=== PATIENT | female | born 1940 | race Caucasian/White ===

== ENCOUNTER 2024-11-13 11:28 | Observation (INO) ==
--- NOTE | 2024-11-13 11:48 | Emergency Department Note ---
Impression & Plan Chest pain, Elevated troponin, Hypertensive urgency ED Provider Note Name: CASSANDRA FORDE Age: 84 Sex: Female Arrives Via: Walk-In Informant: Patient ED Provider: Maurice Hutton MD Chief Complaint: Chest pain Impression: As per impressions above Medical Decision Makin-year-old female with a history of significant hypertension arrives for evaluation of 2 episodes of substernal chest pain prior to arrival. Pain had radiated down both elbows. On arrival feeling much better though she is significantly hypertensive. She was given IV hydralazine with improvement in blood pressure. EKG is reassuring. Initial laboratory workup does reveal mildly elevated troponin. She had another episode of brief chest pain which resolved. An EKG at that time was unremarkable. She was given aspirin 324 mg p.o. She was admitted to the hospital service for further workup and evaluation. I do not feel symptoms are consistent with a PE and angiography is not indicated at this time. Triage/Nursing Notes reviewed by Me Differential:Cardiac ischemia, aortic dissection, pulmonary embolism, pneumothorax, pneumonia, pericarditis, myocarditis, esophageal rupture, GERD, cholecystitis, pancreatitis, musculoskeletal, as well as other pathologies. Vital Signs: reviewed and remarkable for hypertension Interventions: Hydralazine 10 mg IV, aspirin 324 mg p.o. Labs:ED labs Reviewed by me and remarkable for elevated troponin Imaging:As per my interpretation. Indication chest pain. 1 view chest x-ray no widened mediastinum no infiltrate no pneumothorax or other concerning findings. EKG:As per my interpretation. Indication chest pain. Normal sinus rhythm 86 bpm QTc of 425. There is no ectopy nor ischemia. There are no previous EKGs for comparison. Cardiac/Tele Monitoring: Cardiac Monitoring: An Order was placed for continuous cardiac monitoring. The monitor shows a rate of 80 with a normal sinus rhythm. Consults:[facility] will further evaluate and bring in for further management. Plan: Disposition:Hospitalization. Condition: Good History of Present Illness: 84-year-old female arrives for evaluation of chest pain. Patient notes 2 episodes of several minutes of substernal chest pressure rating to bilateral shoulders down to her elbows. Associated with diaphoresis and lightheadedness. This occurred while driving home from [facility] and route to [place]. Patient notes history of hypertension has checked her blood pressure and it was in the 150s and 160s. Due to the second episode of chest pain she decided to be evaluated in the emergency room. On arrival patient states she is feeling much better. Denies any current chest pain, shortness of breath, headache, palpitations, leg swelling, calf pain abdominal pain, back pain, nausea, vomiting or other concerning signs or symptoms. No neurologic deficits. Denies this happening previously. Patient with a history of heart catheterization about 30 years ago she said was unremarkable. Both her parents lived [place] and no history of cardiac disease. She does not smoke. Past Medical History: Hypertension, dyslipidemia Home Medications: Pravastatin, valsartan, clonidine (as needed) Allergies: IV dye Vitals:Blood Pressure: 242/98, Pulse 82, RR 20, T 36.6C, O2 97% on RA Physical Exam: GENERAL: Patient is anxious appearing and in mild distress. RESPIRATORY: No dyspnea. Clear to auscultation and equal bilaterally. CARDIOVASCULAR: Regular rate and rhythm.No murmur appreciated. GASTROINTESTINAL: Abdomen soft, non-tender, no peritonitis. EXTREMITIES: Normal motion all extremities, no cyanosis, no edema. NEUROLOGIC: Alert and oriented. No focal neurologic deficits appreciated SKIN: No rash, no jaundice, no diaphoresis. PSYCH: Appropriate GCS: 15 ED Course: Times/Reassessments: Stable throughout with improving blood pressure. She did have another episode of chest pain and EKG at this time is reassuring. Maurice Hutton MD Past Med/Surg History Problem List (Updated 11/13/24 @ 16:48 by Maurice Hutton MD) Hypertensive urgency (Acute) Elevated troponin (Acute) Chest pain (Acute) Social History Smoking Status: Never smoker Hx Alcohol Use: No Hx Substance Use: No Preferred Language: Latvian Communication Ability: Effective Remote Recruiter Required: No Beliefs That Will Affect Care: None Current Living Situation: Alone Current Living Situation Comment: Spouse 6 months ago Feels Safe at Home: Yes Safety Concerns: Feels Safe At This Time Assistive Devices: None Allergies Allergies Allergy/AdvReac Type Severity Reaction Status Date / Time iodine Allergy Unknown Unknown Unverified 11/13/24 13:03 Home Meds Home Medications Medication Instructions Recorded Confirmed cholecalciferol (vitamin D3) 25 25 mcg PO QPM 11/13/24 11/13/24 mcg (1,000 unit) tablet (Vitamin D3) citalopram 10 mg tablet 10 mg PO DAILY 11/13/24 11/13/24 clonidine HCl 0.1 mg tablet 0.1 mg PO BID PRN SBP>160 11/13/24 11/13/24 pravastatin 20 mg tablet 20 mg PO DAILY 11/13/24 11/13/24 valsartan 160 mg tablet 160 mg PO QPM 11/13/24 11/13/24 Results & Data (ED) Vital Signs Vital Signs - 24 hr 11/13/24 11:33 11/13/24 11:46 11/13/24 11:47 Temperature 36.6 C Temperature Source Temporal Artery Scan Pulse Rate 82 70 Pulse Rate [Right Finger] 65 Pulse Rhythm [Right Finger] Regular Pulse Strength [Right Finger] Normal Respiratory Rate 20 17 Respiratory Effort / Characteristics Non-Labored Non-Labored Respiratory Depth Normal Normal Respiratory Pattern Regular Regular Blood Pressure 242/98 H Blood Pressure [Right Arm] 258/139 H Blood Pressure Mean 146 Blood Pressure Mean [Right Arm] 178 Blood Pressure Position [Right Arm] Lying Pulse Oximetry 97 97 Oxygen Delivery Method Room Air Room Air Sepsis Recent Fever Within 48 Hours No Sepsis New/Unexplained Change in Mental Status No Sepsis Action Taken by Nursing No Action Required 11/13/24 11:53 11/13/24 12:42 11/13/24 12:50 Temperature Temperature Source Pulse Rate Pulse Rate [Right Finger] 83 Pulse Rhythm [Right Finger] Regular Pulse Strength [Right Finger] Normal Respiratory Rate Respiratory Effort / Characteristics Respiratory Depth Respiratory Pattern Blood Pressure Blood Pressure [Right Arm] 195/76 H 173/81 H 192/81 H Blood Pressure Mean Blood Pressure Mean [Right Arm] 115 111 118 Blood Pressure Position [Right Arm] Lying Lying Lying Pulse Oximetry 96 Oxygen Delivery Method Room Air Sepsis Recent Fever Within 48 Hours Sepsis New/Unexplained Change in Mental Status Sepsis Action Taken by Nursing Laboratory Data 11/13/24 11:46 11/13/24 11:46 Lab Results 11/13/24 Range/Units 11:46 WBC 6.21 (4.8-10.8) K/ul RBC 4.43 (4.20-5.40) M/uL Hgb 13.8 (12.0-16.0) g/dl Hct 41.9 (37.0-47.0) % MCV 94.6 (80.0-100.0) fL MCH 31.2 (25.0-34.0) pg MCHC 32.9 (32.0-36.0) g/dL RDW Std Deviation 45.0 (36.4-46.3) fL RDW Coeff of Nicanor 13.1 (11.5-14.5) % Plt Count 320 (130-400) K/uL MPV 11.4 (9.4-12.4) fL Immature Gran % (Auto) 7.4 % Neut % (Auto) 58.3 % Lymph % (Auto) 23.0 % [place] % (Auto) 8.5 % Eos % (Auto) 1.8 % Baso % (Auto) 1.0 % Neut # (Auto) 3.62 (1.40-6.50) K/uL Lymph # (Auto) 1.43 (1.20-3.40) K/uL [place] # (Auto) 0.53 (0.11-0.59) K/uL Eos # (Auto) 0.11 (0.00-0.50) K/uL Baso # (Auto) 0.06 (0.00-0.20) K/uL Immature Gran # (Auto) 0.46 H (0.01-0.20) K/uL Sodium 142 (136-145) mmol/L Potassium 3.8 (3.5-5.1) mmol/L Chloride 105 (98-107) mmol/L Carbon Dioxide 30 (21-32) mmol/L Anion Gap 7 (3-11) BUN 18 (6-23) mg/dl Creatinine 0.95 (0.6-1.2) mg/dl Est Cr Clr Drug Dosing 46.4 ml/min eGFR 59.82 BUN/Creatinine Ratio 18.9 (10-20) Glucose 103 H (70-99(Fasting)) mg/dl Calcium 9.3 (8.6-10.3) mg/dl Magnesium 2.1 (1.7-2.4) mg/dl Total Bilirubin 0.7 (0.2-1.0) mg/dl Direct Bilirubin 0.0 (0-0.2) mg/dl AST 19 (13-39) U/L ALT 14 (7-52) U/L Alkaline Phosphatase 81 (34-104) U/L Troponin I High Sens 20.6 H (0-14) pg/ml Total Protein 7.2 (6.0-8.3) gm/dl Albumin 4.2 (3.4-5.0) gm/dl Lipase 11 (11-82) U/L Administered Medications Acetaminophen (Acetaminophen 325 Mg Tab) 650 mg PO Q4H PRN PRN Reason: Pain or Fever Stop: 12/13/24 14:11 Last Admin: 11/13/24 15:51 Dose: 650 mg Documented By: KENY Hydralazine HCl (Hydralazine Hcl 20 Mg/Ml Vial) 5 mg IV Q4H PRN PRN Reason: SBP>160 Stop: 12/13/24 14:11 Last Admin: 11/13/24 14:19 Dose: 5 mg Documented By: KENY Valsartan (Valsartan 80 Mg Tab) 160 mg PO [facility] Stop: 12/13/24 15:14 Last Admin: 11/13/24 15:51 Dose: 160 mg Documented By: KENY Discontinued Medications Amlodipine Besylate (Amlodipine Besylate 5 Mg Tab) 5 mg PO NOW ONE Stop: 11/13/24 13:37 Last Admin: 11/13/24 13:47 Dose: 5 mg Documented By: RITA Aspirin (Aspirin 81 Mg Chew) 324 mg PO NOW STA Stop: 11/13/24 12:32 Last Admin: 11/13/24 12:38 Dose: 324 mg Documented By: MADELINE Hydralazine HCl (Hydralazine Hcl 20 Mg/Ml Vial) 10 mg IV NOW STA Stop: 11/13/24 11:46 Last Admin: 11/13/24 11:51 Dose: 10 mg Documented By: RITA Hydrochlorothiazide (Hydrochlorothiazide 25 Mg Tab) 12.5 mg PO NOW STA Stop: 11/13/24 15:00 Last Admin: 11/13/24 15:51 Dose: 12.5 mg Documented By: KENY Nitroglycerin (Nitroglycerin 2% Ointment 30gm Tube) 0.5 inch EXT NOW ONE Stop: 11/13/24 13:40 Last Admin: 11/13/24 13:46 Dose: 0.5 inch Documented By: RITA Imaging Data Radiologist's Impression: Chest X-Ray 11/13/24 11:45 XR chest 1V portable CLINICAL HISTORY: chest pain TECHNIQUE: Single frontal radiograph of the chest was obtained. Comparison: None available at the time of this dictation. FINDINGS: No lines and tubes are seen. Calcified aortic knob is seen. The lungs are clear. No evidence of pleural effusion or pneumothorax. IMPRESSION: No acute chest disease. ACT 112: Negative or not required by law. Electronically signed by: Jose R Garcia M.D. 11/13/2024 12:16 PM Discharge Plan Visit Data Chief Complaint: Chest Pain Stated Complaint: BURINING IN CHEST, PAIN DOWN TO ELBOW, HIGH BP ED Provider: Maurice Hutton Discharge Problem: Chest pain, Elevated troponin, Hypertensive urgency Patient Disposition: Admitted As Inpatient Discharge Instructions Interventions: ED Discharge Assessment Last Done: 11/13/24 13:57 Discharge Problem: Chest pain Qualifiers: Chest pain type: unspecified Qualified Code(s): R07.9 - Chest pain, unspecified
[2024-11-13] MEDS: hydrALAZINE HCL 20 MG/ML VIAL IV STA (11:51)
[2024-11-13 11:58] LABS: Hematocrit (blood only) 41.9 % (37.0-47.0); Hemoglobin 13.8 g/dl (12.0-16.0); Mean Corpuscular Hemoglobin 31.2 pg (25.0-34.0); Mean Corpuscular Hgb Conc 32.9 g/dL (32.0-36.0); Mean Corpuscular Volume 94.6 fL (80.0-100.0); Mean Platelet Volume 11.4 fL (9.4-12.4); Platelet Count 320 K/uL (130-400); RDW Coefficient of Variation 13.1 % (11.5-14.5); Red Blood Count 4.43 M/uL (4.20-5.40); White Blood Count 6.21 K/ul (4.8-10.8)
--- NOTE | 2024-11-13 12:18 | XRay Report ---
XR chest 1V portable CLINICAL HISTORY: chest pain TECHNIQUE: Single frontal radiograph of the chest was obtained. Comparison: None available at the time of this dictation. FINDINGS: No lines and tubes are seen. Calcified aortic knob is seen. The lungs are clear. No evidence of pleur al effusion or pneumothorax. IMPRESSION: No acute chest disease. ACT 112: Negative or not required by law. Electronically signed by: Jose R Garcia M.D. 11/13/2024 12:16 PM
[2024-11-13 12:21] LABS: Albumin Level 4.2 gm/dl (3.4-5.0); BUN Creatinine Ratio 18.9 (10-20); Bilirubin,Total 0.7 mg/dl (0.2-1.0); Calcium 9.3 mg/dl (8.6-10.3); Creatinine Clr Calc Pharmacy 46.4 ml/min; Magnesium 2.1 mg/dl (1.7-2.4); Potassium 3.8 mmol/L (3.5-5.1); Total Protein 7.2 gm/dl (6.0-8.3)
[2024-11-13 12:28] LABS: Basophils # (auto) 0.06 K/uL (0.00-0.20); Eosinophils # (auto) 0.11 K/uL (0.00-0.50); Eosinophils % (auto) 1.8 %; Immature Granulocytes # (auto) 0.46 K/uL (0.01-0.20); Immature Granulocytes % (auto) 7.4 %; Lymphocytes # (auto) 1.43 K/uL (1.20-3.40); Monocytes # (auto) 0.53 K/uL (0.11-0.59); Monocytes % (auto) 8.5 %; Neutrophils # (auto) 3.62 K/uL (1.40-6.50); Neutrophils % (auto) 58.3 %; Troponin I High Sensitivity 20.6 pg/ml (0-14)
[2024-11-13] MEDS: ASPIRIN 81 MG CHEW PO STA (12:38)
--- NOTE | 2024-11-13 12:53 | History & Physical Report ---
Date of Service November 13, 2024 Assessment & Plan (1) Chest pain: (2) Elevated troponin: (3) Hypertensive urgency: Plan Farheen Barajas is an 84-year-old female with past medical history significant for HTN, HLD, CAD, anxiety/depression, Mnire's disease, carpal tunnel syndrome, diverticulosis, asthma, osteoarthritis, osteoporosis, gouty arthropathy, prediabetes and ovarian cancer s/p GUDELIA + BSO who presented to the ED for evaluation on 11/13/2024 secondary to chest pain. Patient reports that she was driving back home (lives in [place]) from visiting her son for the holidays when she started to experience an episode of substernal chest "burning" that caused her to well puller. She mentions that the burning sensation started in her mid epigastric region then radiated up into her substernal chest region before subsequently spreading to both of her arms. This episode lasted for approximately 3 to 5 minutes before subsiding without any intervention. She started driving once again but then started to feel this substernal chest burning feeling once again shortly after resuming her travels. The second episode presented the same way as the first and this time lasted approximately 2 to 3 minutes before subsiding. She did experience another short episode of substernal chest burning in the ED for which she was loaded with 324mg of ASA (entire episode lasted 1-2 minutes per the patient's account). Patient reports that she has been under an immense amount of stress lately as her recently 6 months ago from Alzheimer's disease. She does believe that her stress may be contributing to these episodes of chest burning. Chest Pain, Elevated Troponin: Presenting EKG revealed normal sinus rhythm with sinus arrhythmia however there was no evidence of acute ST changes. Initial troponin was mildly elevated at 20.6 --> repeat troponin 20.7 approximately 2 hours later. CXR was negative for any acute changes. Additional laboratory work- up, including UA, was unremarkable. Patient was endorsing a burning sensation in her epigastric region at the time of our conversation, which she has felt intermittently for the past week. Will add on 40mg po Protonix BID. There certainly could be a component of GERD/acid reflux contributing to or even causing to her symptoms however need to rule out ACS. Continue to trend troponin Q6H. EKG daily x 2. EKG with chest pain PRN. Check resting echocardiogram. Cardiology consult pending for further evaluation. PRN SL nitroglycerin ordered. Hypertensive Urgency: BP significantly elevated at 258/139 upon presentation to the ED. Repeat BP was 192/81 at 12:50 s/p 10mg IV hydralazine. Patient was given an additional 5mg po amlodipine in the ED and had Nitro-Bid applied. Her BP was still quite elevated at 198/72 around 14:15 when she arrived upstairs to the floor therefore an additional 5mg IV hydralazine was given. BP was still elevated at 198/72 around 15:00 therefore she was administered 12.5mg HCTZ and was also given her home valsartan dosing of 160mg daily. Her BP improved to 164/64 at 15:53; most recent BP was 130/65 at 17:47. Patient on the following antihypertensive regimen beginning tomorrow morning --> Valsartan 160mg/daily, HCTZ 12.5mg/daily & amlodipine 5mg/daily. Continue close BP monitoring. Utilize PRN IV hydralazine 5mg Q4H for SBP>160 for the time being. Cardiology already consulted as per above - appreciate further recommendations regarding BP control. Other Chronic Medical Conditions: * HLD, CAD - Continue pravastatin, will check lipid panel in AM. * Prediabetes - Most recent A1c 6.1% in Nov 2023, will repeat Hgb A1c in AM. * Anxiety/Depression - Continue citalopram. PRN po hydroxyzine ordered as well. DVT Prophylaxis: SCDs/TEDs for now. Code Status: FULL CODE PCP: Unassigned [Torsten Petty MD in [place], [place]] Disposition: Admit to PCU/Telemetry for further inpatient evaluation. Patient seen in collaboration with Dr. Najera. Please see addendum. I spent a total of 70 minutes coordinating, documenting, and providing care for this patient excluding time spent in the performance of separately billed services. This included personally reviewing all current laboratories and imaging studies, medical reconciliation, outpatient chart review and discussion with specialists. This chart was completed in part utilizing Speech Voice Recognition Software. Grammatical errors, random word insertions, pronoun errors, and incomplete sentences are an occasional consequence of this system due to software limitations, ambient noise, and hardware issues. Any formal questions or concerns about the content, text, or information contained within the body of this dictation should be directly addressed to the provider for clarification. History of Present Illness Chief Complaint: Chest Pain Primary Care Provider: UNASSIGNED - Torsten Petty MD in [place], [place] Farheen Barajas is an 84-year-old female with past medical history significant for HTN, HLD, CAD, anxiety/depression, Mnire's disease, carpal tunnel syndrome, diverticulosis, asthma, osteoarthritis, osteoporosis, gouty arthropathy, prediabetes and ovarian cancer s/p GUDELIA + BSO who presented to the ED for evaluation on 11/13/2024 secondary to chest pain. History obtained from the patient and associated chart review. Patient reports that she was driving back home (lives in [place]) from visiting her son for the holidays when she started to experience an episode of substernal chest "burning" that caused her to well puller. She mentions that the burning sensation started in her mid epigastric region then radiated up into her substernal chest region before subsequently spreading to both of her arms. This episode lasted for approximately 3 to 5 minutes before subsiding without any intervention. She started driving once again but then started to feel this substernal chest burning feeling once again shortly after resuming her travels. The second episode presented the same way as the first and this time lasted approximately 2 to 3 minutes before subsiding. She decided to call her son after this happened and he encouraged her to come into the ED for evaluation. Presenting EKG revealed normal sinus rhythm with sinus arrhythmia however there was no evidence of acute ST changes. Initial troponin was mildly elevated at 20.6; chest x-ray was negative for any acute changes. Additional laboratory work-up was also unremarkable. She was however found to be quite hypertensive with a BP of 258/139 on presentation. She was given 10mg IV hydralazine in the ED which slightly improved her BP to 192/81 at the time of sign-out around 12:50. She did experience another short episode of substernal chest burning in the ED for which she was loaded with 324mg of ASA - entire episode lasted 1-2 minutes per the patient's account. Patient reports that she has been under an immense amount of stress lately as her recently 6 months ago from Alzheimer's disease. She does believe that her stress may be contributing to these episodes of chest burning. Allergies Allergy/AdvReac Type Severity Reaction Status Date / Time iodine Allergy Unknown Unknown Unverified 11/13/24 13:03 Home Medications Medication Instructions Recorded Confirmed Type cholecalciferol (vitamin D3) 25 25 mcg PO QPM 11/13/24 11/13/24 History mcg (1,000 unit) tablet (Vitamin D3) citalopram 10 mg tablet 10 mg PO DAILY 11/13/24 11/13/24 History clonidine HCl 0.1 mg tablet 0.1 mg PO BID PRN SBP>160 11/13/24 11/13/24 History pravastatin 20 mg tablet 20 mg PO DAILY 11/13/24 11/13/24 History valsartan 160 mg tablet 160 mg PO QPM 11/13/24 11/13/24 History Past Med/Surg History Problem List Hypertensive urgency (Acute) Elevated troponin (Acute) Chest pain (Acute) Social History Smoking Status: Never smoker Hx Alcohol Use: No Hx Substance Use: No Preferred Language: Pashto Communication Ability: Effective Research Nutritionist Required: No Beliefs That Will Affect Care: None Current Living Situation: Alone Current Living Situation Comment: Spouse 6 months ago Feels Safe at Home: Yes Safety Concerns: Feels Safe At This Time Assistive Devices: None Review of Systems Review of Systems: At least ten systems reviewed and negative, except as noted in the HPI. Physical Exam Physical Exam: General: WD/WN, NAD, sitting up in bed, pleasant, conversing appropriately. A+Ox3, intermittently tearful affect. HEENT: Normocephalic, atraumatic. Conjunctivae normal. External ear and nose no rmal, oropharynx normal. Respiratory: Normal respiratory effort, lungs clear to auscultation, no wheeze/rales/rhonchi. No accessory muscle use. Cardiovascular: Regular rate, rhythm, normal peripheral pulses, wearing BLE compression stockings. Vessels: No JVD. Abdomen/GI: Normal bowel sounds, soft, nondistended, nontender to palpation in all quadrants. Extremities/Musculoskeletal: No cyanosis or clubbing, extremities motor strength intact, moves all extremities. Neurologic: No overt focal deficits, CN's II-XI not formally tested but appear grossly intact bilaterally. Skin: No rashes, normal color, warm/dry. Results & Data Results & Data Vital Signs (Past 12 Hours) Vital Signs Temp Pulse Pulse Resp BP BP Pulse Ox 11/13/24 12:50 83 192/81 H 96 11/13/24 12:42 173/81 H 11/13/24 11:53 195/76 H 11/13/24 11:47 70 11/13/24 11:46 65 17 258/139 H 97 11/13/24 11:33 36.6 C 82 20 242/98 H 97 O2 Del Method 11/13/24 12:50 Room Air 11/13/24 12:42 11/13/24 11:53 11/13/24 11:47 11/13/24 11:46 Room Air 11/13/24 11:33 Room Air Laboratory Results Short CBC 11/13/24 Range/Units 11:46 WBC 6.21 (4.8-10.8) K/ul Hgb 13.8 (12.0-16.0) g/dl Hct 41.9 (37.0-47.0) % Plt Count 320 (130-400) K/uL BMP 11/13/24 11:46 Sodium 142 Potassium 3.8 Chloride 105 Carbon Dioxide 30 BUN 18 Creatinine 0.95 Glucose 103 H Calcium 9.3 Liver Function 11/13/24 Range/Units 11:46 Total Bilirubin 0.7 (0.2-1.0) mg/dl Direct Bilirubin 0.0 (0-0.2) mg/dl AST 19 (13-39) U/L ALT 14 (7-52) U/L Alkaline Phosphatase 81 (34-104) U/L Albumin 4.2 (3.4-5.0) gm/dl Diagnostic Findings Chest X-Ray 11/13/24 11:45 XR chest 1V portable CLINICAL HISTORY: chest pain TECHNIQUE: Single frontal radiograph of the chest was obtained. Comparison: None available at the time of this dictation. FINDINGS: No lines and tubes are seen. Calcified aortic knob is seen. The lungs are clear. No evidence of pleural effusion or pneumothorax. IMPRESSION: No acute chest disease. ACT 112: Negative or not required by law. Electronically signed by: Jose R Garcia M.D. 11/13/2024 12:16 PM Medications Administered Discontinued Medications Aspirin (Aspirin 81 Mg Chew) 324 mg PO NOW STA Stop: 11/13/24 12:32 Last Admin: 11/13/24 12:38 Dose: 324 mg Documented By: BS Hydralazine HCl (Hydralazine Hcl 20 Mg/Ml Vial) 10 mg IV NOW STA Stop: 11/13/24 11:46 Last Admin: 11/13/24 11:51 Dose: 10 mg Documented By: SHB Code Status & VTE Plan Code Status FULL CODE Supervising Physician Co-Signing Physician Notes Attending Addendum: Case reviewed with the advanced practitioner. I have personally performed a history and physical examination on the patient. I have reviewed the advanced practitioner's documentation on the date of service referenced in note, and I agree with, and take responsibility for the plan of care. please refer to her notes for full details patient seen and examined, records reviewed by myself as well ASSESSMENT AND PLAN> Chest pain in setting of hypertensive urgency Troponin x 2: 20.6, 20.7 EKG: Sinus rhythm with PVCs Echo: LVEF 55 to 50%, left ventricular systolic function is normal, right ventricle is normal in size and function, aortic stenosis is absent Added amlodipine, HCTZ Blood pressure improved from systolic 190s, now 130s Chest pain also resolved Continue usual valsartan Received aspirin 324 mg Cardiology consult other diagnoses and plan of care as per advanced practitioner's notes Arian Najera MD (1) Chest pain Chest pain type: unspecified Qualified Code(s): R07.9 - Chest pain, unspecified
[2024-11-13] MEDS: NITROGLYCERIN 2% OINTMENT 30GM TUBE EXT ONE (13:46)
[2024-11-13 13:47] LABS: Appearance Urine Clear (Clear); Bilirubin Urine Negative (Negative); Blood Urine Negative (Negative); Color Urine Yellow; Glucose Urine UA Negative (Negative); Ketones Urine Negative (Negative); Leukocyte Esterase Urine Negative (Negative); Nitrite Urine Negative (Negative); Protein Urine Negative (Negative); Specific Gravity Urine 1.006 (1.000-1.030); Urobilinogen Urine Negative (Negative)
[2024-11-13] MEDS: amLODIPine BESYLATE 5 MG TAB PO ONE (13:47)
[2024-11-13] MEDS ORDERED: POLYETHYLENE (MIRALAX) 17 GM PACK PO PRN (14:12)
[2024-11-13] MEDS ORDERED: MAGNESIUM HYDROXIDE SUSP 30 ML UDC PO PRN (14:12)
[2024-11-13] MEDS: hydrALAZINE HCL 20 MG/ML VIAL IV PRN (14:19)
[2024-11-13] MEDS ORDERED: DEXTROSE 50% 50 ML SYRINGE IV PRN (15:03)
[2024-11-13] MEDS ORDERED: GLUCOSE 40% GEL 15 GM TUBE PO PRN (15:03)
[2024-11-13] MEDS ORDERED: CARBOHYDRATES FOR HYPOGLYCEMIA PO PRN (15:03)
[2024-11-13] MEDS ORDERED: GLUCAGON FOR INJ 1 MG VIAL SQ PRN (15:03)
[2024-11-13] MEDS ORDERED: GLUCOSE 10 TAB/TUBE PO PRN (15:03)
[2024-11-13] MEDS: ACETAMINOPHEN 325 MG TAB PO PRN (15:51)
[2024-11-13] MEDS: hydroCHLOROthiazide 25 MG TAB PO STA (15:51)
[2024-11-13] MEDS: VALSARTAN 80 MG TAB PO SCH (15:51)
[2024-11-13] MEDS ORDERED: INSULIN ASPART PER UNIT CHARGE SC SCH (16:30)
--- NOTE | 2024-11-13 16:45 | Electrocardiogram Report ---
Test Reason : Blood Pressure : */* mmHG Vent. Rate : 86 BPM Atrial Rate : 86 BPM P-R Int : 146 ms QRS Dur : 82 ms QT Int : 378 ms P-R-T Axes : 69 70 72 degrees QTcB Int : 452 ms Normal sinus rhythm Normal ECG No previous ECGs available Confirmed by Daniella Ashton (Eliseo) on 11/13/2024 4:45:22 PM Referred By: REFERRED SELF Confirmed By: Daniella Ashton
--- NOTE | 2024-11-13 16:47 | Electrocardiogram Report ---
Test Reason : Blood Pressure : */* mmHG Vent. Rate : 74 BPM Atrial Rate : 74 BPM P-R Int : 154 ms QRS Dur : 84 ms QT Int : 414 ms P-R-T Axes : 70 60 67 degrees QTcB Int : 459 ms Normal sinus rhythm with sinus arrhythmia Normal ECG When compared with ECG of 13-Nov-2024 11:41, (unconfirmed) No significant change was found Confirmed by Daniella Ashton (Eliseo) on 11/13/2024 4:47:25 PM Referred By: REFERRED SELF Confirmed By: Daniella Ashton
[2024-11-13] MEDS: NITROGLYCERIN SL 0.4 MG/TAB TAB SL PRN (17:52)
[2024-11-13] MEDS: hydrOXYzine HCl 25 MG TAB PO PRN (17:59)
[2024-11-13] MEDS: ONDANSETRON INJ 2 MG/ML 2 ML VIAL IV PRN (18:29)
[2024-11-13] MEDS ORDERED: PROMETHAZINE 12.5 MG/50.5 ML BAG IV PRN (19:20)
[2024-11-13] MEDS ORDERED: LORazepam 0.5 MG TAB PO PRN (19:58)
[2024-11-13] MEDS ORDERED: PANTOprazole 40 MG/10 ML SYR IV SCH (21:00)
[2024-11-13] MEDS: PANTOprazole 40 MG TAB PO SCH (21:27)
[2024-11-13] MEDS: CHOLECALCIFEROL 25 MCG (1000 UNITS) TAB PO SCH (21:27)
--- NOTE | 2024-11-13 22:06 | CT Scan Report ---
Exam(s): CT HEAD Without Contrast EXAM: CT Head Without Intravenous Contrast CLINICAL HISTORY: headache, hypertensive urgency. TECHNIQUE: Axial computed tomography images of the head/brain without intravenous contrast. CTDI is 37.49 mGy and DLP is 547.75 mGy-cm. Automated exposure control was utilized for the study. A dose lowering technique was utilized adhering to the principles of ALARA. COMPARISON: No relevant prior studies available. FINDINGS: Brain: No intracranial hemorrhage. No significant mass-effect. No cortical infarct. Minimal periventricular deep white matter hypodense changes noted. Ventricles: No midline shift, ventriculomegaly or effacement of the ventricles. Bones/joints: Unremarkable. No acute fracture. Soft tissues: Unremarkable. Sinuses: Mucosal thickening involving a few right ethmoid air cells. The paranasal sinuses are otherwise well aerated. Mastoid air cells: Unremarkable as visualized. No mastoid effusion. IMPRESSION: No acute intracranial process identified. Electronically signed by: Herber Bustillo MD 11/13/24 22:05 PM
[2024-11-14 02:02] LABS: Hematocrit (blood only) 36.4 % (37.0-47.0); Mean Corpuscular Hemoglobin 31.2 pg (25.0-34.0); Mean Corpuscular Volume 94.5 fL (80.0-100.0); Mean Platelet Volume 11.3 fL (9.4-12.4); Platelet Count 284 K/uL (130-400); RDW Coefficient of Variation 13.3 % (11.5-14.5); RDW Standard Deviation 46.3 fL (36.4-46.3); Red Blood Count 3.85 M/uL (4.20-5.40); White Blood Count 5.69 K/ul (4.8-10.8)
[2024-11-14 02:15] LABS: BUN Creatinine Ratio 22.8 (10-20); Calcium 8.7 mg/dl (8.6-10.3); Chol HDL Ratio 3.6 (0-5); Creatinine Clr Calc Pharmacy 43.5 ml/min; Magnesium 2.2 mg/dl (1.7-2.4); Potassium 3.8 mmol/L (3.5-5.1)
[2024-11-14 07:51] VITALS: BP 158/69; PULSE 64; RESP 17; TEMP 98.1; O2SAT 94
--- NOTE | 2024-11-14 08:49 | Cardiology Consultation ---
Date of Consultation November 14, 2024 Assessment & Plan (1) Hypertensive urgency: (2) Chest pain: (3) Elevated troponin: Plan Patient admitted after several episodes of atypical chest pain and hypertensive urgency HS troponin only minimally elevated but flat at 20, likely due to uncontrolled hypertension. No evidence of ACS. Initial EKG had non specific ST wave abnormalities in inferior and lateral leads that resolved. Echo with normal LVEF, no significant valvular disease. No wall motion abnormalities. BP improved with IV hydralazine in the ER. Amlodipine 5 mg initiated in addition to her home meds of HCTZ and valsartan. BP controlled overnight. No recurrent chest pain. Recommend PPI for possible GERD as well. Recommend f/u with PCP next week when she returns home for BP management. Would also recommend outpatient stress testing given minimally elevated troponin and atypical chest pain with risk factors. No further cardiac testing warranted at this time. Stable for discharge today with above medication adjustments. Case discussed with Dr. mix I spent a total of 50 minutes on the date of service in preparation, delivery, and documentation of the care provided to this patient, excluding any time spent in the performance of separately billed services. Franci Webster PA-C Department of Cardiology, [facility] This chart was completed in part utilizing Speech Voice Recognition Software. Grammatical errors, random word insertions, pronoun errors, and incomplete sentences are an occasional consequence of this system due to software limitations, ambient noise, and hardware issues. Any formal questions or concerns about the content, text, or information contained within the body of this dictation should be directly addressed to the provider for clarification. History of Present Illness Reason for Consultation: CP; Hypertensive Urgency Requesting Physician: [facility] Hospitalist Attending Physician: Dr. Olivas History of Present Illness Patient is an 84 year old female admitted to [facility] yesterday, 11/13 with complaints of chest pain, described as a burning sensation radiating to her arms, and hypertensive urgency. BP > 240/100 on arrival. EKG demonstrated normal sinus rhythm, mild non s pecific ST abnormality in inferior and lateral leads. Improved on repeat EKG. Patient reports she had several episodes of this chest "burning" sensation while driving through the area, on her way home from [place] holiday. Symptoms lasted about 2 minutes each time and she pulled over until symptoms resolved. After 2nd or 3rd episode in several minutes, she came to the ER. HS troponin minimally elevated but flat since admission around 20. Likely due to uncontrolled hypertension. Patient reports she sees a manager category where she lives once per year for palpitations. She had a prior cardiac cath about 20 years ago and was told this was normal. She is treated for hypertension and dyslipidemia. She admits to a great deal of stress as her about 6 months ago. Since arrival in the ER, patient denies recurrent chest pain or chest burning. No recent exertional chest pain. Her BP has trended downward with IV hydralazine. Amlodipine added to her home HCTZ and valsartan. BP currently controlled. At time of consult, patient resting in chair. Anxious for discharge as she wants to continue on her travels and get home before dark. Her Bp is much improved this morning. Tolerating med changes. She voices no acute concerns. Allergies Allergy/AdvReac Type Severity Reaction Status Date / Time iodine Allergy Unknown Unknown Unverified 11/13/24 13:03 Home Medications Medication Instructions Recorded Confirmed Type cholecalciferol (vitamin D3) 25 25 mcg PO QPM 11/13/24 11/13/24 History mcg (1,000 unit) tablet (Vitamin D3) clonidine HCl 0.1 mg tablet 0.1 mg PO BID PRN SBP>160 11/13/24 11/13/24 History pravastatin 20 mg tablet 20 mg PO DAILY 11/13/24 11/13/24 History valsartan 160 mg tablet 160 mg PO QPM 11/13/24 11/13/24 History amlodipine 5 mg tablet (Norvasc) 5 mg PO QAM #30 tabs 11/14/24 Rx citalopram 10 mg tablet 20 mg (2 x 10 mg) PO DAILY #60 tabs 11/14/24 Rx hydrochlorothiazide 25 mg tablet 12.5 mg (1/2 x 25 mg) PO QAM #30 11/14/24 Rx tabs potassium chloride 10 mEq 10 meq PO DAILY #30 tabs 11/14/24 Rx tablet,extended release(part/cryst) Patient History Social History Smoking Status: Never smoker Hx Alcohol Use: No Hx Substance Use: No Preferred Language: Malay Communication Ability: Effective 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 Beliefs That Will Affect Care: None Current Living Situation: Alone Current Living Situation Comment: Spouse 6 months ago Feels Safe at Home: Yes Assistive Devices: None Review of Systems Review of Systems: All systems reviewed & are unremarkable except as noted in HPI & below Physical Exam Constitutional: WD/WN, vitals as above well developed; no acute distress Neck: trachea midline, no thyromegaly normal visual inspection Respiratory: normal respiratory effort, lungs clear to auscultation Cardiovascular: Rate/Rhythm: regular rate and regular rhythm Heart Sounds: normal S1 and normal S2; no murmur Vessels: no JVD Extremities: no edema Gastrointestinal (Abdomen): normal bowel sounds, soft, nontender, no hepatosplenomegaly Musculoskeletal: no cyanosis or clubbing, extremities motor strength 5/5 Neurologic: PERRL, EOMI, accommodation nl, no face palsy, no dysarthria Results & Data Vital Signs (Past 12 Hours) Vital Signs Temp Pulse Pulse Resp BP Pulse Ox O2 Del Method 11/14/24 07:49 36.7 C 64 17 158/69 H 94 Room Air 11/14/24 05:50 52 L 11/14/24 02:50 36.4 C L 55 L 18 134/56 L 95 Room Air 11/13/24 22:46 36.8 C 63 18 121/57 L 95 Room Air 11/13/24 22:00 65 Laboratory Results Cardiac Enzymes 11/13/24 11/13/24 11/13/24 Range/Units 11:46 13:28 19:38 AST 19 (13-39) U/L Troponin I High Sens 20.6 H 20.7 H 23.2 H (0-14) pg/ml 11/14/24 Range/Units 01:47 AST (13-39) U/L Troponin I High Sens 20.9 H (0-14) pg/ml Lipids 11/14/24 Range/Units 01:47 Triglycerides 76 (0-150) mg/dl Cholesterol 187 (0-200) mg/dl HDL Cholesterol 52 mg/dl Cholesterol/HDL Ratio 3.6 (0-5) CBC 11/13/24 11/14/24 Range/Units 11:46 01:47 WBC 6.21 5.69 (4.8-10.8) K/ul RBC 4.43 3.85 L (4.20-5.40) M/uL Hgb 13.8 12.0 (12.0-16.0) g/dl Hct 41.9 36.4 L (37.0-47.0) % Plt Count 320 284 (130-400) K/uL Neut # (Auto) 3.62 (1.40-6.50) K/uL Lymph # (Auto) 1.43 (1.20-3.40) K/uL [place] # (Auto) 0.53 (0.11-0.59) K/uL Eos # (Auto) 0.11 (0.00-0.50) K/uL Baso # (Auto) 0.06 (0.00-0.20) K/uL Comprehensive Metabolic Panel 11/13/24 11/14/24 Range/Units 11:46 01:47 Sodium 142 140 (136-145) mmol/L Potassium 3.8 3.8 (3.5-5.1) mmol/L Chloride 105 107 (98-107) mmol/L Carbon Dioxide 30 29 (21-32) mmol/L BUN 18 23 (6-23) mg/dl Creatinine 0.95 1.01 (0.6-1.2) mg/dl Glucose 103 H 106 H (70-99(Fasting)) mg/dl Calcium 9.3 8.7 (8.6-10.3) mg/dl Direct Bilirubin 0.0 (0-0.2) mg/dl AST 19 (13-39) U/L ALT 14 (7-52) U/L Alkaline Phosphatase 81 (34-104) U/L Total Protein 7.2 (6.0-8.3) gm/dl Albumin 4.2 (3.4-5.0) gm/dl Intake and Output 11/13/24 11/14/24 11/14/24 22:59 06:59 14:59 Other: # Unmeasured Voids 1 2 Weight 75 kg 76.8 kg Weight Measurement Method Built in Bedscale Built in [facility] Diagnostic Findings Telemetry reviewed: NSR in the 60-70's. No arrhythmias EKG reviewed from admission 11/13/24 at 11:[address] depression in inferior and lateral leads Repeat EKG dated 12:34 on 11/13: NSR, ST abnormality resolved Normal EKG Repeat EKG reviewed from this morning, 11/14/24: Sinus bradycardia at 58 bmp normal ekg Echo report reviewed dated 11/13/24: LVEF at 55-60% LV systolic function is normal RV is normal in size and function Aortic stenosis is absent Chest X-Ray 11/13/24 11:45 FINDINGS: No lines and tubes are seen. Calcified aortic knob is seen. The lungs are clear. No evidence of pleural effusion or pneumothorax. IMPRESSION: No acute chest disease. Head CT 11/13/24 19:58 IMPRESSION: No acute intracranial process identified. Electronically signed by: Herber Bustillo MD 11/13/24 22:05 PM Medications Administered Current Inpatient Medications Acetaminophen (Acetaminophen 325 Mg Tab) 650 mg PO Q4H PRN PRN Reason: Pain or Fever Stop: 12/13/24 14:11 Last Admin: 11/13/24 15:51 Dose: 650 mg Amlodipine Besylate (Amlodipine Besylate 5 Mg Tab) 5 mg PO QAM [facility] Stop: 12/14/24 08:59 Citalopram Hydrobromide (Citalopram 20 Mg Tab) 10 mg PO DAILY [facility] Stop: 12/14/24 08:59 Hydralazine HCl (Hydralazine Hcl 20 Mg/Ml Vial) 5 mg IV Q4H PRN PRN Reason: SBP>160 Stop: 12/13/24 14:11 Last Admin: 11/13/24 14:19 Dose: 5 mg Hydrochlorothiazide (Hydrochlorothiazide 25 Mg Tab) 12.5 mg PO QAM [facility] Stop: 12/14/24 08:59 Promethazine HCl (Phenergan) 12.5 mg in 50.5 mls @ 202 mls/hr IV Q6H PRN PRN Reason: Nausea And Vomiting Stop: 12/13/24 19:19 Lorazepam (Lorazepam 0.5 Mg Tab) 0.5 mg PO Q6H PRN PRN Reason: Anxiety Stop: 12/13/24 19:57 Magnesium Hydroxide (Magnesium Hydroxide Susp 30 Ml Udc) 30 ml PO Q12H PRN PRN Reason: Constipation Stop: 12/13/24 14:11 Nitroglycerin (Nitroglycerin Sl 0.4 Mg/Tab Tab) 0.4 mg SL Q5M PRN PRN Reason: Chest Pain Stop: 12/13/24 14:11 Last Admin: 11/13/24 17:52 Dose: 0.4 mg Pantoprazole Sodium (Pantoprazole 40 Mg Tab) 40 mg PO BID NISHI Stop: 12/13/24 20:59 Last Admin: 11/13/24 21:27 Dose: 40 mg Polyethylene Glycol (Polyethylene (Miralax) 17 Gm Pack) 17 gm PO DAILY PRN PRN Reason: Constipation Stop: 12/13/24 14:11 Pravastatin Sodium (Pravastatin Sod 20 Mg Tab) 20 mg PO DAILY NISHI Stop: 12/14/24 08:59 Valsartan (Valsartan 80 Mg Tab) 160 mg PO QAM NISHI Stop: 12/13/24 15:14 Last Admin: 11/13/24 15:51 Dose: 160 mg Vitamin D (Cholecalciferol 25 Mcg (1000 Units) Tab) 25 mcg PO QPM NISHI Stop: 12/13/24 20:59 Last Admin: 11/13/24 21:27 Dose: 25 mcg (2) Chest pain Chest pain type: unspecified Qualified Code(s): R07.9 - Chest pain, unspecified
[2024-11-14] MEDS: PRAVASTATIN SOD 20 MG TAB PO SCH (09:19)
[2024-11-14] MEDS: hydroCHLOROthiazide 25 MG TAB PO SCH (09:20)
[2024-11-14] MEDS: amLODIPine BESYLATE 5 MG TAB PO SCH (09:20)
[2024-11-14] MEDS: CITALOPRAM 20 MG TAB PO SCH (09:20)
--- NOTE | 2024-11-14 09:25 | Discharge Summary ---
Discharge Summary Date of Service November 14, 2024 Principal Dx & Hospital Course #1 = Principal Diagnosis (1) Hypertension, uncontrolled: (2) Hypertensive urgency: (3) Anxiety as acute reaction to exceptional stress: (4) Adjustment reaction with anxiety and depression: (5) Tension headache: (6) Demand ischemia: Plan Patient is a 4-year-old female traveling from out of town presented to the emergency room with complaints of chest discomfort and uncontrolled hypertension. In the emergency room was noted to have significantly elevated blood pressure as well as a mildly increased troponin. Patient was monitored in the hospital. There was no significant arrhythmias on telemetry monitoring. Echocardiogram was performed and showed no significant wall motion abnormalities and normal ejection fraction. Troponins were trended and were only minimally elevated and remained flat and decreased. Blood pressure improved with interventions and increasing her medication as well as adding some additional amlodipine and hydrochlorothiazide. On the morning of discharge patient shared that she was extremely anxious. Just recently lost her about 6 months ago. Since then she has been having tension headaches and anxiety. Just recently started on Celexa about 2 weeks ago to try and address some of this. Suspect this may be contributing significantly to her uncontrolled hypertension. Also suspect this may be contributing to her tension headaches. We discussed this. She will continue on her usual dose of valsartan with the addition of amlodipine and hydrochlorothiazide. Potassium supplementation. Increase her Celexa dosing to 20 mg daily. She will be discharged to follow-up with her outpatient provider. Notes For Next Care Provider Continue to monitor blood pressure and adjust medications as needed May need additional treatment for her anxiety and depression Medication Changes From Visit Amlodipine and hydrochlorothiazide added for blood pressure control K-dur for potassium supplementation Celexa dose increased Admission HPI Per Admitting Provider Farheen ShawClaytonManisha is an 84-year-old female with past medical history significant for HTN, HLD, CAD, anxiety/depression, Mnire's disease, carpal tunnel syndrome, diverticulosis, asthma, osteoarthritis, osteoporosis, gouty arthropathy, prediabetes and ovarian cancer s/p GUDELIA + BSO who presented to the ED for evaluation on 11/13/2024 secondary to chest pain. History obtained from the patient and associated chart review. 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 She mentions that the burning sensation started in her mid epigastric region then radiated up into her substernal chest region before subsequently spreading to both of her arms. This episode lasted for approximately 3 to 5 minutes before subsiding without any intervention. She started driving once again but then started to feel this substernal chest burning feeling once again shortly after resuming her travels. The second episode presented the same way as the first and this time lasted approximately 2 to 3 minutes before subsiding. She decided to call her son after this happened and he encouraged her to come into the ED for evaluation. Presenting EKG revealed normal sinus rhythm with sinus arrhythmia however there was no evidence of acute ST changes. Initial troponin was mildly elevated at 20.6; chest x-ray was negative for any acute changes. Additional laboratory work-up was also unremarkable. She was however found to be quite hypertensive with a BP of 258/139 on presentation. She was given 10mg IV hydralazine in the ED which slightly improved her BP to 192/81 at the time of sign-out around 12:50. She did experience another short episode of substernal chest burning in the ED for which she was loaded with 324mg of ASA - entire episode lasted 1-2 minutes per the patient's account. Patient reports that she has been under an immense amount of stress lately as her recently 6 months ago from Alzheimer's disease. She does believe that her stress may be contributing to these episodes of chest burning. Admission Exam Per Admitting Provider See H&P Discharge Exam Constitutional: Alert, nontoxic, no acute distress HEENT: Mucous membranes moist. Lungs: Clear to auscultation, decreased, no wheezes rales or rhonchi CV: S1-S2, regular Abdomen: Soft, nontender, nondistended Extremities: No significant edema Musculoskeletal: Cervical muscles tenderness, ropiness, bogginess Neuro: No focal deficits Psych: Cooperative, normal mood Updated Medication List Medication Instructions Recorded Confirmed Type cholecalciferol (vitamin D3) 25 25 mcg PO QPM 11/13/24 11/13/24 History mcg (1,000 unit) tablet (Vitamin D3) clonidine HCl 0.1 mg tablet 0.1 mg PO BID PRN SBP>160 11/13/24 11/13/24 History pravastatin 20 mg tablet 20 mg PO DAILY 11/13/24 11/13/24 History valsartan 160 mg tablet 160 mg PO QPM 11/13/24 11/13/24 History amlodipine 5 mg tablet (Norvasc) 5 mg PO QAM #30 tabs 11/14/24 Rx citalopram 10 mg tablet 20 mg (2 x 10 mg) PO DAILY #60 tabs 11/14/24 Rx hydrochlorothiazide 25 mg tablet 12.5 mg (1/2 x 25 mg) PO QAM #30 11/14/24 Rx tabs potassium chloride 10 mEq 10 meq PO DAILY #30 tabs 11/14/24 Rx tablet,extended release(part/cryst) Hospital Stay Data Consultations 11/13/24 12:52 ED Decision to Admit Stat 11/13/24 13:42 Consult Cardiology Routine Diagnostic Imagining Performed 11/13/24 19:58 CT head/brain wo con Stat Reviewed imaging, laboratory and diagnostic studies. Pertinent findings as below. Head CT negative for acute findings EKG sinus bradycardia without acute ST-T wave changes Chest x-ray no acute abnormalities Urinalysis unremarkable Basic metabolic profile electrolytes within normal range, creatinine 1.01 CBC stable Echocardiogram shows normal ejection fraction 55 to 60%, no wall motion abnormalities, no significant valvular abnormalities Pending Results Patient Have Any Pending Studies at Discharge: No Discharge Instructions Given to Patient (Per Discharging Provider) Follow-up with your PCP for ongoing management of your blood pressure. Recommend you discuss with your PCP additional management of your anxiety and depression, I suspect you are suffering from the loss of your more than you suspect it may be giving you a lot of your symptoms of headache and chest pains and uncontrolled blood pressure. Total Time Total Time Spent Total Time Spent (In Minutes): 35
--- NOTE | 2024-11-14 10:20 | Electrocardiogram Report ---
Test Reason : Blood Pressure : */* mmHG Vent. Rate : 58 BPM Atrial Rate : 58 BPM P-R Int : 176 ms QRS Dur : 82 ms QT Int : 450 ms P-R-T Axes : 67 46 62 degrees QTcB Int : 441 ms Sinus bradycardia Otherwise normal ECG When compared with ECG of 13-Nov-2024 17:55, (unconfirmed) Premature ventricular complexes are no longer Present Confirmed by Daniella Ashton (Eliseo) on 11/14/2024 10:19:50 AM Referred By: REFERRED SELF Confirmed By: Daniella Ashton
--- NOTE | 2024-11-15 15:08 | Electrocardiogram Report ---
Test Reason : Blood Pressure : */* mmHG Vent. Rate : 82 BPM Atrial Rate : 82 BPM P-R Int : 156 ms QRS Dur : 82 ms QT Int : 400 ms P-R-T Axes : 64 35 48 degrees QTcB Int : 467 ms Sinus rhythm with occasional Premature ventricular complexes Otherwise normal ECG When compared with ECG of 13-Nov-2024 12:34, Premature ventricular complexes are now Present Confirmed by Mandeep Hammer ([id number]) on 11/15/2024 3:08:11 PM Referred By: REFERRED SELF Confirmed By: Mandeep Hammer
== END 2024-11-14 10:52 | disposition home or self-care (01) | DRG 305 ==
LOC: ED 11:28 → SUATTDRO 13:15 → INTOOBSV 13:15 → 2E 13:15